=== PATIENT | female | born 1955 | race Caucasian/White ===

== ENCOUNTER → 2017-08-22 | Outpatient (CLI) | payer BC, OTHER | LOC: RAD 10:03 | DX: Z12.31 Encounter for screening mammogram for malignant neoplasm of breast (principal) ==

== ENCOUNTER → 2018-08-22 | Outpatient (CLI) | payer BC, OTHER | LOC: RAD 05:30 | DX: Z12.31 Encounter for screening mammogram for malignant neoplasm of breast (principal) ==